=== PATIENT | female | born 1965 | race American Indian/Alaskan Native ===

== ENCOUNTER 2018-08-13 10:20 | Day surgery (SDC) | payer MEDICARE ==
[~2018-08-13 10:20] MED LIST: NACL 0.9% 1000 ML 1,000 ML IV SCH
== END 2018-08-13 10:21 | disposition home or self-care (01) ==
LOC: GIO 10:20
PROVIDERS: ATTEND Internal Medicine Gastroenterology
DX: Z12.11 Encounter for screening for malignant neoplasm of colon (principal); M06.9 Rheumatoid arthritis, unspecified; Z53.8 Procedure and treatment not carried out for other reasons; Z86.010 Personal history of colon polyps; Z80.0 Family history of malignant neoplasm of digestive organs; Z88.0 Allergy status to penicillin; Z79.899 Other long term (current) drug therapy; Z90.49 Acquired absence of other specified parts of digestive tract; Z98.890 Other specified postprocedural states; Z86.73 Personal history of transient ischemic attack (TIA), and cerebral infarction without residual deficits

== ENCOUNTER 2018-09-27 10:40 | Day surgery (SDC) | payer MEDICARE ==
--- NOTE | 2018-09-27 08:47 | Anesthesia Day of Surgery ---
Anesthesia Day of Surgery - Day of Surgery Patient Examined: Yes Patient H&P Reviewed: Yes Patient is NPO: Yes Beta Blockers: No Cardiac Clearance: No Pulmonary Clearance: No
--- NOTE | 2018-09-27 08:47 | Anesthesia Consultation ---
Anesthesia Consult and Med Hx - Airway Anesthetic Teeth Evaluation: Dentures ROM Head & Neck: Adequate Mental/Hyoid Distance: Adequate Mallampati Class: Class III Intubation Access Assessment: Probably Good - Pulmonary Exam CTA: Yes - Cardiac Exam Cardiac Exam: RRR - Pre-Operative Health Status ASA Pre-Surgery Classification: ASA3 Proposed Anesthetic Plan: MAC - Central Nervous System CVA: Yes (06/2018)
[2018-09-27] MEDS ORDERED: WATER FOR IRRIG STERILE IR ONE (14:11)
[2018-09-27] MEDS ORDERED: WATER FOR IRRIG STERILE ONE (14:12)
[2018-09-27] MEDS ORDERED: DIPRIVAN 10 MG/ML IV ONE ×2 (14:22)
--- NOTE | 2018-09-27 14:42 | Discharge Summary ---
Short Stay Discharge Plan Activity: advance as tolerated Weight Bearing Status: Weight Bear as Tolerated Diet: regular Follow up with: KARLA BLUE MD [Primary Care Provider] - 7 Days
--- NOTE | 2018-09-27 14:42 | Operative Report ---
Operative Report Operative Report: Date of procedure: 09/27/2017 Procedure: Colonoscopy. Attending physician: Danny Momin MD Chargeback Analyst: Danny Momin MD Indication: Patient is a 52 year-old female who presents for colonoscopy. She has a history of colon polyps and a family history of colon cancer. A colonoscopy serves to evaluate patient so that treatment may be directed based on findings. Consent: Informed consent was obtained after advising the patient and family regarding nature of this procedure, its indications, potential benefits as well as possible complications including but not limited to bleeding perforation and adverse reaction to medication, infection as well as other cardiopulmonary complications. An informed written and verbal consent was then obtained after due opportunity was provided for questions and answers. Monitoring: Patient was monitored continuously with pulse oximetry and electrocardiographic recordings as well as blood pressure recordings. Vital signs remained stable throughout this procedure with no untoward events. Preoperative assessment: Patient was assessed immediately prior to this procedure for capacity to tolerate monitored anesthesia care and moderate sedation as well as general anesthesia. Patient's ASA classification is 1, Mallampati class is 2, Hyomental distance is 3. Instrument: [employer] videocolonoscope. [employer] video endoscope. Medications: Propofol given intravenously in divided doses. For details please refer to anesthesia records. Description of procedure: Patient was placed in the left lateral decubitus position after achieving sedation, a digital rectal examination was performed following which the colonoscope was introduced into the anal verge and advanced to the cecum which was identified by the cecal valve, the appendiceal orifice, as well as by the cecal strap and direct transillumination. The colonoscope was subsequently withdrawn with careful inspection of all mucosal surfaces. Patient tolerated this procedure well and was subsequently taken to the recovery room. The following findings were noted. Findings: The preparation was excellent. The cecum was normal. The ascending colon was normal. The transverse colon was normal. The descending colon was normal. Patient also had some mild diverticulosis of the sigmoid colon. On the retroflexed view of the anal verge, patient had internal hemorrhoids.. Impression: Diverticulosis Internal hemorrhoids. Plan: High-fiber diet. Repeat colonoscopy in 5 years
[2018-09-27 15:18] VITALS: BP 102/69
== END 2018-09-27 10:41 | disposition home or self-care (01) ==
LOC: GIO 10:40
PROVIDERS: ATTEND Internal Medicine Gastroenterology
DX: Z12.11 Encounter for screening for malignant neoplasm of colon (principal); K57.30 Diverticulosis of large intestine without perforation or abscess without bleeding; K64.8 Other hemorrhoids; M06.9 Rheumatoid arthritis, unspecified; Z86.010 Personal history of colon polyps; Z80.0 Family history of malignant neoplasm of digestive organs; Z88.0 Allergy status to penicillin; Z79.899 Other long term (current) drug therapy; Z90.49 Acquired absence of other specified parts of digestive tract; Z98.890 Other specified postprocedural states; Z86.73 Personal history of transient ischemic attack (TIA), and cerebral infarction without residual deficits
CPT/HCPCS: G0105; J2704; J7030

== ENCOUNTER 2018-10-08 20:52 | Observation (INO) | payer MEDICARE ==
--- NOTE | 2018-10-08 21:53 | Emergency Department Report ---
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 Due to findings the following was ordered: CP protocol ED Disposition for MSE Condition: Stable
[2018-10-08 22:21] LABS: Basophils # (Auto) 0.1 K/mm3 (0.0-0.1); Eosinophils # (Auto) 0.5 K/mm3 (0.0-0.4); Eosinophils % (Auto) 8.7 % (0.0-4.3); Hematocrit 31.6 % (30.3-42.9); Hemoglobin 10.3 gm/dl (10.1-14.3); Lymphocytes # (Auto) 2.2 K/mm3 (1.2-5.4); Lymphocytes % (Auto) 40.6 % (13.4-35.0); Mean Corpuscular HGB Conc 33 % (30-34); Mean Corpuscular Volume 79 fl (79-97); Monocytes # (Auto) 0.6 K/mm3 (0.0-0.8); Monocytes % (Auto) 10.2 % (0.0-7.3); Platelet Count 414 K/mm3 (140-440); Red Blood Count 3.98 M/mm3 (3.65-5.03); Red Cell Distribution Width 15.5 % (13.2-15.2)
[2018-10-08 22:58] LABS: Alanine Aminotransferase 23 units/L (7-56); Albumin 3.7 g/dL (3.9-5); BUN/Creatinine Ratio 18; Blood Urea Nitrogen 9 mg/dL (7-17); Calcium 9.3 mg/dL (8.4-10.2); Hemolysis Index 1
[2018-10-08] MEDS ORDERED: NACL 0.9% 500 ML 500 ML IV ONE (23:25)
[2018-10-08] MEDS ORDERED: TYLENOL PO ONE (23:25)
--- NOTE | 2018-10-08 23:27 | Emergency Department Report ---
ED General Adult HPI - General Chief complaint: Chest Pain Stated complaint: RAPID HEART RATE LEG PAIN Time Seen by Provider: 10/08/18 21:49 Source: patient, RN notes reviewed Mode of arrival: Wheelchair Limitations: No Limitations - History of Present Illness Initial comments: This is a 52-year-old female. The patient is not known to this provider pre viously. Patient reports that her primary care doctor is Dr. Hwang Her past medical history includes stroke, questionable foramen ovale, cholecystectomy, rheumatoid arthritis High cholesterol The patient works as a long-distance otr van cdl truck driver. The patient presents to the emergency room with a complaint of nontraumatic right lateral ankle/leg pain. The pain is present since past . It is intermittent. It increases with palpation, range of motion, and it decreases with rest. The patient denies vomiting, the patient denies diaphoresis. The patient reports earlier on today she developed central chest tightness. The tightness is intermittent. It is associated with shortness of breath, near syncope and palpitations. Patient reports no recent cardiac risk stratification. The patient denies diaphoresis. Patient endorses recent cross- country road trip from [place] to [facility]. -: Sudden, days(s) Location: right, lower extremity Radiation: non-radiation Severity scale (0 -10): 7 Quality: aching Consistency: intermittent Improves with: rest Worsens with: movement - Related Data Home Medications Medication Instructions Recorded Confirmed Last Taken Adult Low Dose Aspirin EC 81 mg PO DAILY 08/10/18 09/27/18 09/19/18 Atorvastatin 40 mg PO DAILY 08/10/18 09/27/18 09/19/18 Allergies Allergy/AdvReac Type Severity Reaction Status Date / Time Penicillins Allergy Unknown Verified 11/07/14 12:12 ED Review of Systems ROS: Stated complaint: RAPID HEART RATE LEG PAIN Other details as noted in HPI Constitutional: denies: fever Eyes: denies: eye discharge ENT: denies: epistaxis Respiratory: shortness of breath. denies: cough Cardiovascular: chest pain, palpitations, syncope (patient endorses near syncope) Gastrointestinal: denies: abdominal pain, hematemesis, melena, hematochezia Genitourinary: denies: dysuria Musculoskeletal: arthralgia, myalgia Skin: denies: lesions Neurological: denies: headache Psychiatric: anxiety ED Past Medical Hx - Past Medical History Hx CVA: Yes (06/2017) Hx Arthritis: (RHEUMTOID) Additional medical history: "hole in heart" - Surgical History Hx Cholecystectomy: Yes - Social History Smoking Status: Current Every Day Smoker Substance Use Type: None - Medications Home Medications: Home Medications Medication Instructions Recorded Confirmed Last Taken Type Adult Low Dose Aspirin EC 81 mg PO DAILY 08/10/18 09/27/18 09/19/18 History Atorvastatin 40 mg PO DAILY 08/10/18 09/27/18 09/19/18 History ED Physical Exam - General Limitations: No Limitations General appearance: alert, in no apparent distress - Head Head exam: Present: atraumatic, normocephalic - Eye Eye exam: Present: normal appearance, EOMI - ENT ENT exam: Present: normal exam, normal orophraynx, mucous membranes moist, normal external ear exam - Neck Neck exam: Present: normal inspection, full ROM - Respiratory Respiratory exam: Present: normal lung sounds bilaterally. Absent: respiratory distress - Cardiovascular Cardiovascular Exam: Present: regular rate, normal rhythm, normal heart sounds. Absent: bradycardia, tachycardia, irregular rhythm, systolic murmur, diastolic murmur, rubs, gallop - GI/Abdominal GI/Abdominal exam: Present: soft. Absent: distended, tenderness, guarding, rebound, rigid, pulsatile mass - Extremities Exam Extremities exam: Present: normal inspection, full ROM, tenderness (there is right lateral malleolus tenderness), other (2+ pulses noted in the bilateral upper, lower extremities. Compartments soft. No long bony tenderness. The pelvis is stable.). Absent: calf tenderness - Back Exam Back exam: Present: normal inspection, full ROM. Absent: tenderness, CVA tenderness (R), paraspinal tenderness, vertebral tenderness - Neurological Exam Neurological exam: Present: alert, other (Extraocular movements intact. Tongue midline. No facial droop. Facial sensation intact to light touch in the V1, V2, V3 distribution bilaterally. 5 and 5 strength in 4 extremities.. Sensation is intact to light touch in 4 extremities.). Absent: motor sensory deficit - Psychiatric Psychiatric exam: Present: normal affect, normal mood, flat affect - Skin Skin exam: Present: warm, dry, intact, normal color. Absent: rash ED Course Vital Signs 10/08/18 10/08/18 10/08/18 21:06 21:49 22:48 Temperature 98.4 F 98.4 F Pulse Rate 79 79 76 Respiratory 18 18 18 Rate Blood Pressure 121/55 Blood Pressure 121/55 118/75 [Right] O2 Sat by Pulse 98 98 98 Oximetry 10/08/18 10/09/18 10/09/18 22:49 00:51 01:01 Temperature Pulse Rate 84 76 Respiratory 16 16 Rate Blood Pressure Blood Pressure 139/93 [Right] O2 Sat by Pulse 100 100 Oximetry 10/09/18 10/09/18 02:04 03:37 Temperature Pulse Rate 80 76 Respiratory 15 13 Rate Blood Pressure Blood Pressure 123/74 100/67 [Right] O2 Sat by Pulse 97 98 Oximetry ED Medical Decision Making - Lab Data Result diagrams: 10/08/18 22:06 10/08/18 22:06 Vital Signs 10/08/18 10/08/18 10/08/18 21:06 21:49 22:48 Temperature 98.4 F 98.4 F Pulse Rate 79 79 76 Respiratory 18 18 18 Rate Blood Pressure 121/55 Blood Pressure 121/55 118/75 [Right] O2 Sat by Pulse 98 98 98 Oximetry 10/08/18 10/09/18 22:49 00:51 Temperature Pulse Rate 84 76 Respiratory 16 Rate Blood Pressure Blood Pressure 139/93 [Right] O2 Sat by Pulse 100 Oximetry Lab Results 10/08/18 10/08/18 10/08/18 Range/Units 22:06 22:06 22:06 WBC 5.5 (4.5-11.0) K/mm3 RBC 3.98 (3.65-5.03) M/mm3 Hgb 10.3 (10.1-14.3) gm/dl Hct 31.6 (30.3-42.9) % MCV 79 (79-97) fl MCH 26 L (28-32) pg MCHC 33 (30-34) % RDW 15.5 H (13.2-15.2) % Plt Count 414 (140-440) K/mm3 Lymph % (Auto) 40.6 H (13.4-35.0) % [place] % (Auto) 10.2 H (0.0-7.3) % Eos % (Auto) 8.7 H (0.0-4.3) % Baso % (Auto) 1.0 (0.0-1.8) % Lymph # 2.2 (1.2-5.4) K/mm3 [place] # 0.6 (0.0-0.8) K/mm3 Eos # 0.5 H (0.0-0.4) K/mm3 Baso # 0.1 (0.0-0.1) K/mm3 Seg Neutrophils % 39.5 L (40.0-70.0) % Seg Neutrophils # 2.2 (1.8-7.7) K/mm3 PT 13.8 (12.2-14.9) Sec. INR 1.00 (0.87-1.13) APTT 28.0 (24.2-36.6) Sec. D-Dimer 1151.20 H (0-234) ng/mlDDU Sodium 141 (137-145) mmol/L Potassium 3.9 (3.6-5.0) mmol/L Chloride 102.6 (98-107) mmol/L Carbon Dioxide 28 (22-30) mmol/L Anion Gap 14 mmol/L BUN 9 (7-17) mg/dL Creatinine 0.5 L (0.7-1.2) mg/dL Estimated GFR > 60 ml/min BUN/Creatinine Ratio 18 % Glucose 101 H (65-100) mg/dL Calcium 9.3 (8.4-10.2) mg/dL Total Bilirubin 0.20 (0.1-1.2) mg/dL AST 25 (5-40) units/L ALT 23 (7-56) units/L Alkaline Phosphatase 76 (35-129) units/L Troponin T < 0.010 (0.00-0.029) ng/mL NT-Pro-B Natriuret Pep 5.97 (0-900) pg/mL Total Protein 6.8 (6.3-8.2) g/dL Albumin 3.7 L (3.9-5) g/dL Albumin/Globulin Ratio 1.2 % - EKG Data -: EKG Interpreted by Ma EKG shows normal: sinus rhythm, axis Rate: normal - EKG Data Interpretation: no acute changes 10/09/18 00:57 Sinus rhythm, 84 bpm, normal axis, QTC prolonged, poor R-wave progression, this is an abnormal EKG, this is not consistent with ST elevation myocardial infarction, there is no prior for comparison. - Radiology Data Radiology results: pending, report reviewed, image reviewed Noncontrast CT scan of the brain is negative for acute disease. X-ray of the right ankle is negative for acute disease. CT scan of the chest is negative for pulmonary embolus. Other nonemergent incidental findings reviewed and appreciated. - Medical Decision Making Differential diagnosis, including but not limited to: Right lower extremity DVT, right ankle arthritis, pulmonary embolus, acute coronary syndrome, GERD, gastritis, hiatal hernia, pneumonia, anxiety, conversion disorder Assessment and plan: 52-year-old female with reported complaints of chest pain, shortness of breath, right leg pain, works as a otr van cdl truck driver, d-dimer sent prior to my evaluation, agree with this, found to be elevated, CT scan of the chest was obtained, and negative for pulmonary embolus. Patient resting currently, in stretcher, playing video games on her cellular phone. External examination of the right lower extremity not consistent with cellulitis or compartment syndrome. Given her reported history of stroke, high cholesterol, vascular risk factor burden, age, nonspecific EKG, and complaint of chest pain, shortness of breath and lightheadedness/near syncope, patient in my opinion is moderate risk by the heart score, and not suitable for outpatient cardiac risk stratification. We will therefore admit the patient. This is discussed with patient who verbalizes understanding. Case is presented to the Hospital physician, Dr. Cheryl Hyde who has accepted the patient to the medical service. Critical care attestation.: If time is entered above; I have spent that time in minutes in the direct care of this critically ill patient, excluding procedure time. ED Disposition Clinical Impression: Right leg pain, Near syncope, Chest pain Disposition: OP ADMIT IP TO THIS HOSP Is pt being admited?: Yes Does the pt Need Aspirin: Yes Condition: Stable
--- NOTE | 2018-10-08 23:51 | XRay Report ---
PROCEDURE: XR CHEST ROUTINE 2V TECHNIQUE: PA and lateral chest radiographs were obtained. HISTORY: Chest Pain COMPARISONS: None. FINDINGS: Heart: Normal. Mediastinum/Vessels: Normal. Lungs/Pleural space: Normal. Bony thorax: No acute osseous abnormality. IMPRESSION: Normal examination. This document is electronically signed by Wojciech Crystal MD., October 08 2018 11:49:27 PM ET
--- NOTE | 2018-10-09 00:27 | Cat Scan Report ---
PROCEDURE: CT HEAD/BRAIN WO CON TECHNIQUE: Spiral CT imaging of the brain was obtained without the use of IV contrast. HISTORY: near syncope COMPARISONS: FINDINGS: Brain: Brain density appears normal. No evidence of intracranial hemorrhage. No parenchymal hemorr nabeel, mass lesions or mass effect are seen. No abnormal extra-axial fluid collects or masses are see n. Ventricles: Ventricles are normal size and are midline. Bone Windows: No evidence of skull fracture. Paranasal sinuses: There is moderate mucosal thickening in the left maxillary sinus, mild changes rig ht maxillary sinus. Nodular changes seen in the ethmoid air cells. Moderate mucosal thickening seen i n the sphenoid sinuses. No air-fluid levels are identified. Mastoid air cells: Clear. IMPRESSION: No evidence of intracranial hemorrhage or skull fracture. CT of the brain shows no focal abnormalitie s. Moderate diffuse paranasal sinus disease as described. This document is electronically signed by Raheel Ryan MD., October 09 2018 12:25:36 AM ET
--- NOTE | 2018-10-09 00:34 | XRay Report ---
PROCEDURE: XR ANKLE 3+V RT TECHNIQUE: 3 views of the right ankle were obtained. HISTORY: right ankle pain COMPARISONS: None FINDINGS: The ankle mortise appears intact. There is no evidence of fracture or dislocation. Joint fluid is not seen. There are arthritic changes involving several joints and hindfoot. IMPRESSION: No evidence of fracture or dislocation. Arthritic changes involving several joints in the hindfoot.. This document is electronically signed by John Mercado MD., October 09 2018 12:32:52 AM ET
--- NOTE | 2018-10-09 00:45 | Cat Scan Report ---
PROCEDURE: CT ANGIOGRAM OF THE CHEST FOR PULMONARY EMBOLISM TECHNIQUE: Computerized axial tomographic angiography of the chest and pulmonary arteries was perfor med during the IV injection of iodinated nonionic contrast. The image data was postprocessed using ma ximum intensity projection (MIP) and 2-dimensional multiplanar reformatted (MPR) techniques. The exam ination is specifically tailored to the evaluation of the pulmonary arteries per clinical request. A utomated exposure control, adjustment of mA and/or kV according to patient size, or iterative reconst ruction dose optimization techniques were utilized. CPT G9637, 78463 HISTORY: Shortness of breath R06.02, chest pain unspecified R07.9 , COMPARISONS: None . FINDINGS: Pulmonary out flow tract, right and left main pulmonary arteries and the proximal branches: Clear, n o filling defects seen to suggest pulmonary embolus. Pericardium: No evidence of pericardial effusion. Thoracic aorta: No evidence of aneurysmal dilatation or dissection. Coronary arteries: Unremarkable. Mediastinum and hilar regions: Non specific subcentimeter lymph nodes are visualized. No pathologica lly enlarged lymph nodes or masses are identified. Lung Felix: Mild peripheral emphysematous changes seen in apex right lung. Lungs otherwise are clear . Upper abdomen: Gallbladder is surgically absent. No acute abnormalities are seen Other: No acute bone abnormalities are seen.. There are multiple low-density nodules scattered in the right and left lobes of the thyroid gland as well as the isthmus. IMPRESSION: No evidence of pulmonary embolus. Prior cholecystectomy. Nonspecific multinodular goiter. If clinically indicated ultrasound could be performed for further ch aracterization. This document is electronically signed by Raheel Ryan MD., October 09 2018 12:43:37 AM ET
[2018-10-09] MEDS ORDERED: IBUPROFEN PO ONE (00:59)
[2018-10-09] MEDS ORDERED: BABY ASPIRIN PO ONE (01:00)
[2018-10-09] MEDS ORDERED: ZOFRAN IV PRN (01:55)
[2018-10-09] MEDS ORDERED: MORPHINE IV PRN (01:55)
[2018-10-09] MEDS ORDERED: TYLENOL PO PRN (01:57)
[2018-10-09] MEDS ORDERED: NITROSTAT SL PRN (01:58)
[2018-10-09] MEDS: HEPARIN SUB-Q SCH ×3 (02:16→22:07)
[2018-10-09] MEDS: NITRO-BID 2% TP SCH ×4 (06:12→18:51)
[2018-10-09 07:42] LABS: Creatine Kinase MB < 1.0 ng/mL (0.0-4.0)
[2018-10-09] MEDS ORDERED: NON-FORMULARY (Atorvastatin 40 MG) PO SCH (10:00)
[2018-10-09] MEDS: ASPIRIN PO SCH (11:58)
[2018-10-09 14:37] LABS: Creatine Kinase MB < 1.0 ng/mL (0.0-4.0)
--- NOTE | 2018-10-09 15:08 | Event Note ---
Date: 10/09/18 Pt admitted today for chest pain. Stress test pending. Due to the leg pain with markedly elevated d-dimer, will check venous doppler to assess for DVT. CTA chest neg for PE
--- NOTE | 2018-10-09 16:27 | History and Physical Report ---
CHIEF COMPLAINT: Pain in the right leg. Other complaint include chest pain. HISTORY OF PRESENT ILLNESS: The patient is a 52-year-old female, who says she has been having intermittent pain in the right ankle area and also pain in the adjacent right leg area. There was no history of trauma. There was also no history of fever or chills. Also, the patient complained of chest pain that started yesterday on 10/08/2018. Pain is retrosternal in location and appears as tightness in the chest and intermittent in nature. It does not radiate and was associated with shortness of breath, palpitation and near syncopal feeling. There was no history of diaphoresis. There was also no history of nausea or vomiting and the patient was seen and presented for admission. PAST MEDICAL HISTORY: Pertinent for CVA, rheumatoid arthritis, hypercholesterolemia, hole in the heart. PAST SURGICAL HISTORY: Pertinent for cholecystectomy. FAMILY HISTORY: Noncontributory. SOCIAL HISTORY: The patient smokes cigarette, does not drink alcohol and does not use illicit drugs. MEDICATIONS: The patient is on aspirin 81 mg daily, atorvastatin 40 mg by mouth daily. ALLERGIES: THE PATIENT IS ALLERGIC TO PENICILLIN. REVIEW OF SYSTEMS: CONSTITUTIONAL: There is no fever, no chills, no diaphoresis. HEENT: There is no headache or sore throat. CARDIOVASCULAR SYSTEM: Chest pain is present. No orthopnea. RESPIRATORY SYSTEM: Shortness of breath is present. There is no cough. GASTROINTESTINAL SYSTEM: There is no nausea, no vomiting, no abdominal pain, diarrhea or constipation. NEUROLOGICAL SYSTEM: There is no numbness, no dizziness, no altered mental status. MUSCULOSKELETAL SYSTEM: Pain in the right ankle and right leg noted. No joint swelling. DERMATOLOGICAL SYSTEM: There is no skin rash or itching. GENITOURINARY SYSTEM: There is no dysuria, hematuria or flank pain. Rest of system review is normal. PHYSICAL EXAMINATION: GENERAL: At the time of exam, the patient was found to be alert, oriented x 3 and not in acute distress. VITAL SIGNS: Initial vital signs shows temperature of 98.4, pulse of 79, respirations 18, blood pressure 121/55, O2 sat of 98% on room air. HEENT: Showed pupils to be equal, round, and reactive to light and accommodating. Extraocular muscles are intact. NECK: Supple with no JVD or carotid bruit. CARDIOVASCULAR SYSTEM: Showed normal first and second heart sounds with no gallops or murmurs. RESPIRATORY: Showed good air entry on both sides of the lungs with no abnormal breath sounds. GASTROINTESTINAL SYSTEM: Show abdomen to be full, soft, nontender with no organomegaly or rigidity. NEUROLOGICAL: Shows no focal deficit. MUSCULOSKELETAL SYSTEM: Show no joint swelling or tenderness. DERMATOLOGICAL SYSTEM: Show no skin rash. GENITOURINARY SYSTEM: Showing no costovertebral angle tenderness. PERTINENT LABORATORY DATA AND IMAGING STUDIES: The patient had chest x-ray done that shows no acute cardiopulmonary lesion. Also, the patient had x-ray of the right ankle area done that shows no evidence of fracture or dislocation with arthritic changes involving several joints in the hindfoot was noted. The patient had CT angiogram of the chest done because of chest pain and elevated D-dimer, which shows no evidence of pulmonary embolism. There is finding of prior cholecystectomy and nonspecific multinodular goiter was noted and the radiologist say if clinically indicated, ultrasound could be performed for further characterization. The patient also had CT of the head without contrast done that shows no evidence of intracranial hemorrhage or skull fracture. CT of the brain shows no focal abnormality. Moderate diffuse paranasal sinus disease was found. Lab results, the patient has CBC done with normal white count, normal hemoglobin and normal hematocrit with CBC differential showing high lymphocyte count 40.6% and high monocyte count of 10.2% as well as high eosinophil count of 8.7%. The patient's coagulation studies show high D-dimer of 1151 that prompted the order for CT angiogram of the chest. The patient's chemistry was unremarkable. Cardiac enzymes show normal troponin level and rest of chemistry shows slight decrease in albumin level of 3.7. DIAGNOSES: 1. Chest pain. 2. Right leg pain. PLAN OF CARE: 1. The patient will be admitted to telemetry. 2. The patient will have cardiac enzymes involving troponin, total CK and CK-MB check serially every 6 hours x 2 more level. 3. The patient will be n.p.o. for Lexiscan stress test in the morning. 4. The patient will be on morphine 2 mg IV every 3 hours as needed for pain and IV Zofran 4 mg every 8 hours as needed for nausea and vomiting. 5. The patient will be on nitro paste half inch to anterior chest wall q.i.d. as well as Nitrostat 0.4 mg every 5 minutes as needed for chest pain. 6. The patient will be on Tylenol 650 mg by mouth every 4 hours as needed for headache and fever and will be on heparin 5000 units subcutaneous q. 12 hours for DVT prophylaxis. 7. The patient will be on aspirin 325 mg by mouth daily and will be on oxygen by nasal cannula at 2 liters per minute. 8. The patient will be n.p.o. and will have Lexiscan stress test this morning. JOB# [id number] OCN/NTS
--- NOTE | 2018-10-09 22:16 | Treadmill Report ---
THALLIUM STRESS TEST LEFT VENTRICLE: Left ventricular chamber size is within normal spread. Perfusion study demonstrates homogeneous uptake of the tracer in all segments, no significant perfusion defects identified. Gated analysis demonstrates normal left ventricular systolic function, ejection fraction 71%. CONCLUSION: Normal myocardial perfusion study. JOB# [id number] CA/NTS
[2018-10-10] MEDS: NITRO-BID 2% TP SCH ×4 (05:00→13:39)
[2018-10-10] MEDS: ASPIRIN PO SCH (10:26)
[2018-10-10] MEDS: HEPARIN SUB-Q SCH (10:27)
--- NOTE | 2018-10-10 11:10 | Vascular Lab Report ---
PROCEDURE: VL VENOUS DUPLEX LE BILAT TECHNIQUE: Duplex Doppler ultrasound examination of the venous system of the right leg and left leg HISTORY: leg pain COMPARISONS: None FINDINGS: RIGHT LEG: Normal compressibility, vascular patency, and augmentation are present diffusely throughout the visua lized portion of the deep veins. No abnormal intraluminal echoes are visualized to suggest deep vein thrombus. Slight nonspecific prominence of inguinal lymph nodes without gross enlargement. IMPRESSION: No ultrasound evidence of DVT in the right leg LEFT LEG: Normal compressibility, vascular patency, and augmentation are present diffusely throughout the visua lized portion of the deep veins. No abnormal intraluminal echoes are visualized to suggest deep vein thrombus. Slight nonspecific prominence of inguinal lymph nodes without gross enlargement. IMPRESSION: No ultrasound evidence of DVT in the left leg This document is electronically signed by Ronnie Gaona MD., Oct 10 2018 11:08:05 AM ET
--- NOTE | 2018-10-10 11:20 | Discharge Summary ---
Providers - Providers Date of Admission: 10/09/18 00:59 Attending physician: BRISEIDA RAMIRES MD Primary care physician: LEAF COVERER Hospitalization Reason for admission: chest pain Condition: Stable Hospital course: Patient is a 52-year-old female who follows with Dr. Hwang. Her past medical history includes stroke, questionable foramen ovale, cholecystectomy, rheumatoid arthritis High cholesterol The patient works as a long-distance straight truck driver. The patient presents to the emergency room with a complaint of nontraumatic right lateral ankle/leg pain. The pain is present since past . It is intermittent. It increases with palpation, range of motion, and it decreases with rest. The patient denies vomiting, the patient denies diaphoresis. The patient reports earlier on today she developed central chest tightness. The tightness is intermittent. It is associated with shortness of breath, near syncope and palpitations. Patient reports no recent cardiac risk stratification. The patient denies diaphoresis. Patient endorses recent [place]- [place] road trip from [place] to [facility]. She underwent a stress test and was noted to be negative and will be discharged. Due to the leg pain with markedly elevated d-dimer, venous doppler was checked and was negative for DVT. CTA chest neg for PE. Patient was advised to undergo age appropriate cancer screening Atypical chest pain likely secondary to GERD Right leg pain. Elevated d.dimer Disposition: - TO HOME OR SELFCARE Time spent for discharge: 35 mins Core Measure Documentation - Palliative Care Palliative Care/ Comfort Measures: Not Applicable - Core Measures Any of the following diagnoses?: none Exam - Constitutional Vitals: Temp Pulse Resp BP Pulse Ox 98.3 F 89 20 124/74 96 10/10/18 03:53 10/10/18 10:25 10/10/18 03:53 10/10/18 10:25 10/10/18 10:00 General appearance: Present: no acute distress, well-nourished - EENT Eyes: Present: PERRL, EOM intact ENT: hearing intact, clear oral mucosa - Neck Neck: Present: supple, normal ROM - Respiratory Respiratory effort: normal Respiratory: bilateral: CTA - Cardiovascular Rhythm: regular Heart Sounds: Present: S1 & S2. Absent: systolic murmur, diastolic murmur - Extremities Extremities: no ischemia, pulses intact, pulses symmetrical, No edema, normal temperature, normal color, Full ROM Peripheral Pulses: within normal limits - Abdominal General gastrointestinal: Present: soft, non-tender, non-distended, normal bowel sounds Female genitourinary: Present: normal - Integumentary Integumentary: Present: clear, warm, dry - Musculoskeletal Musculoskeletal: strength equal bilaterally - Psychiatric Psychiatric: appropriate mood/affect - Neurologic Neurologic: CNII-XII intact, moves all extremities - Allied Health Allied health notes reviewed: nursing Plan Activity: advance as tolerated, fall precautions Diet: low fat Special Instructions: record daily weights, record daily BP diary Follow up with: PRIMARY CAREMD [Primary Care Provider] - 3-5 Days DADA GLOVER MD [Staff Physician] - 7 Days
[2018-10-10 13:40] VITALS: BP 118/69
== END 2018-10-10 14:37 | disposition home or self-care (01) ==
LOC: ED 20:52 → 4A 10-09 00:59
PROVIDERS: ADMIT Internal Medicine; ATTEND Internal Medicine
DX: R07.89 Other chest pain (principal); M79.604 Pain in right leg; M06.9 Rheumatoid arthritis, unspecified; E78.00 Pure hypercholesterolemia, unspecified; F17.210 Nicotine dependence, cigarettes, uncomplicated; Z90.49 Acquired absence of other specified parts of digestive tract; Z86.73 Personal history of transient ischemic attack (TIA), and cerebral infarction without residual deficits
CPT/HCPCS: 36415; 70450; 71046; 71275; 73610; 78452; 80053; 82550; 82553; 83880; 84484; 85025; 85379; 85610; 85730; 93005; 93010; 93017; 93970; 96372; 99284; A9270; A9502; G0378; J1644; J7040; Q9967